=== PATIENT | female | born 1995 | race Caucasian/White ===

== ENCOUNTER 2018-03-22 21:28 | Emergency (ER) | payer OTHER ==
[~2018-03-22 21:28] MED LIST: HYDR-385 PO; NORG-1 PO; SERT-1 PO
[2018-03-22 21:46] VITALS: BP 138/85
--- NOTE | 2018-03-22 21:47 | ER Report ---
History and Physical Time Seen By MD: 21:45 HPI/ROS CHIEF COMPLAINT: Right small finger cut with glass HISTORY OF PRESENT ILLNESS: 22-year-old female presents ambulatory to the ER with a small laceration on her 5th finger on the palmar surface from a broken glass. Just prior to arrival. Patient states her tetanus shot is up-to-date from a few months ago. He notes no foreign body. Bleeding is controlled with pressure. Allergies: Coded Allergies: No Known Drug Allergies (Unverified , 03/22/18) Home Meds Reported Medications Norgestrel-Ethinyl Estradiol (OGESTREL) 1 Each Tablet, 1 EACH PO QDAY 03/09/16 Sertraline Hcl (ZOLOFT) 50 Mg Tablet, 1 TAB PO QDAY, TAB 03/09/16 Discontinued Scripts Hydrocodone Bit/Acetaminophen (HYDROCODON-ACETAMINOPHEN 5-325) 1 Each Tablet, 1 EACH PO Q6H PRN for PAIN, #10 TAB 0 Refills Prov:DUANE RIBEIRO APRN HEALTH THERAPIST-C 03/09/16 Reviewed Nurses Notes: Yes Old Medical Records Reviewed: Yes Constitutional Vital Sign - Last 24 Hours 03/22/18 21:46 Temp 98.4 Pulse 85 Resp 16 B/P (MAP) 138/85 Pulse Ox 95 O2 Delivery Room Air Physical Exam General appearance: Alert no distress. Respiratory: Chest is non tender, lungs are clear to auscultation. Cardiac: Regular rate and rhythm Extremity: Examination of the right hand reveals a superficial laceration on the pad of the left small finger, approximately 1.0 cm in length. DIFFERENTIAL DIAGNOSIS: After history and physical exam differential diagnosis was considered for finger laceration, foreign body, joint penetration, tendon laceration Medical Decision Making ED Course/Re-evaluation ED Course Patient was admitted to an examination room. H&P was done. The differential diagnoses was considered. On conical examination. Patient has a laceration of the pad of her right 5th finger. Her tetanus status is up-to-date. Patient's wound is repaired with Dermabond as noted below. Wound care is discussed. Procedure: Laceration repair. Verbal consent was obtained from the patient. The 1.0 cm laceration on the palmar aspect of the distal right 5th fingerthe wound was scrubbed, draped and explored to its base with a gloved finger. There were no deep structures involved. No foreign body was palpated or noted. The wound was repaired with Dermabond 3 layers. The wound repair was simple. The procedure was performed by myself. Decision to Disposition Date: Mar 22, 2018 Decision to Disposition Time: 21:52 Depart Departure Latest Vital Signs Vital Signs Date Time Temp Pulse Resp B/P (MAP) Pulse Ox O2 Delivery O2 Flow Rate FiO2 03/22/18 21:46 98.4 85 16 138/85 95 Room Air Impression: Primary Impression: Laceration of right little finger Condition: Improved Disposition: HOME OR SELF-CARE Patient Instructions: Skin Adhesive Care (ED) Problem Qualifiers Primary Impression: Laceration of right little finger Encounter type: initial encounter Damage to nail status: without damage Foreign body presence: without foreign body Qualified Codes: S61.216A - Laceration without foreign body of right little finger without damage to nail, initial encounter SHUKRI DENG DO Mar 22, 2018 21:47
[2018-03-22] MEDS ORDERED: OCTYL CYANOACRYLATE 1 APP APPL TP ONE (21:50)
== END 2018-03-22 22:04 | disposition home or self-care (01) ==
LOC: ER 21:58
DX: S61.216A Laceration without foreign body of right little finger without damage to nail, initial encounter (principal); W25.XXXA Contact with sharp glass, initial encounter
CPT/HCPCS: 99283

== ENCOUNTER → 2018-07-19 | Outpatient (CLI) | payer OTHER ==
[~2018-07-19] MED LIST changes: +LOOVRAL PO; +SERT-173 PO
== END ==
LOC: AMB 23:50
PROVIDERS: ATTEND Nurse Practitioner
DX: S61.512A Laceration without foreign body of left wrist, initial encounter (principal); X83.8XXA Intentional self-harm by other specified means, initial encounter
CPT/HCPCS: A0425; A0429

== ENCOUNTER 2018-07-20 00:14 | Emergency (ER) | payer OTHER ==
[~2018-07-20 00:14] MED LIST changes: -LOOVRAL PO; -SERT-173 PO
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
[2018-07-20 00:22] VITALS: BP 143/100
[2018-07-20] MEDS ORDERED: SERT-173 PO (00:31)
[2018-07-20 01:16] LABS: PLATELET COUNT, AUTOMATED 451 K/uL (150-450)
[2018-07-20] MEDS ORDERED: ONDANSETRON 4 MG ODT TABDP SL ONE (01:45)
[2018-07-20] MEDS ORDERED: LOOVRAL PO (19:11)
== END 2018-07-20 02:05 ==
LOC: ER 00:27
DX: S61.512A Laceration without foreign body of left wrist, initial encounter (principal); F10.920 Alcohol use, unspecified with intoxication, uncomplicated; R45.851 Suicidal ideations; F32.9 Major depressive disorder, single episode, unspecified
CPT/HCPCS: 12002; 80305; 80320; 80329; 81001; 81025; 83735; 84443; 85025; 99283; S0119; 82040; 82247; 82310; 82374; 82435; 82565; 82947; 84075; 84132; 84155; 84295; 84450; 84460; 84520

== ENCOUNTER 2018-07-20 01:51 | Inpatient (IN) | payer OTHER ==
[~2018-07-20] VITALS: Ht 165.1 cm; Wt 86.2 kg
[~2018-07-20 01:51] MED LIST changes: +SERT-173 PO
[2018-07-20] MEDS ORDERED: MAG HYD/AL HYD/SIMETH 30ML UDC PO PRN (02:00)
[2018-07-20] MEDS ORDERED: hydrOXYzine PAMOATE 25 MG CAP PO PRN (02:00)
[2018-07-20 03:07] VITALS: BP 129/83
[2018-07-20] MEDS: MULTIVITAMINS TAB PO SCH (08:00)
[2018-07-20 09:12] VITALS: BP 107/64
[2018-07-20] MEDS: ONDANSETRON 4 MG ODT TABDP SL PRN ×2 (10:31→17:24)
[2018-07-20] MEDS: SERTRALINE HCL 50 MG TAB PO SCH (11:31)
[2018-07-20] MEDS: ACETAMINOPHEN 325 MG TAB PO PRN ×2 (13:50→21:39)
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
--- NOTE | 2018-07-20 17:26 | NUR ---
pt continue to feels nausea. Zofran given. Pt states she will try to eat.
[2018-07-20] MEDS ORDERED: LOOVRAL PO (19:11)
--- NOTE | 2018-07-20 19:57 | BHS - Psychiatric Evaluation ---
ER - Title 25 MHE Evaluation Title 25 Evaluation Patient Detained By: Law Enforcement Referral Source: Professional: Law Enforcement Date Patient Detained: Jul 20, 2018 Time Patient Detained: 00:23 Date Longterm Expires: Jul 23, 2018 Time Longterm Expires: 00:23 Legal Status: Police Hold: No Legal Status: Residence: Student ( Student with high GPA) Assessment Data Provided By: Patient, Other Source HPI/ROS: From Dr. Justus Townsend, "23-year-old female brought in by EMS after self-inflicted left wrist laceration while intoxicated tonight inserted 23nd birthday. Patient doesn't describe any suicidal ideation, although her behavior is inappropriate. Patient was detained by police. She does have a history of depression, takes Zoloft 100 mg her doses recently, up from 50. Patient's tetanus status is up-to-date from a year ago. Patient admits to heavy alcohol ingestion tonight, 6 drinks. Her blood alcohol returned at 206." Wound required suture. Admit due to SI or Attempt: Yes Suicide Plan: No Plan Alcohol or Drugs Involved: Yes Is Patient Info Reliable: Yes Is Collateral Info Reliable: Yes Current Home Psych Meds: Zoloft Mental Status Exam General Appearance: Good Eye Contact Speech: Clear Mood: Euthymic Affect: Full and Appropriate Thought Process: Organized Thought Content: Suicidal Ideation (Reports not understanding why she cut herself.) Cognition: Alert & Oriented-Person, Alert & Oriented-Place, Alert & Oriented- Time Memory: Immediate Insight Judgment: Poor Sleep: Normal Hallucinations: Denies Delusions: Denies Current Risk & History Current Dangerous Risk Assessm: Current Suicide Attempt, Self-Injurious Behaviors Past Dangerous Risk Assessm: Suicide Ideation-last 6mo (Denies previous ideati on or suicidal behaviors) Prior Alcohol/Drug Abuse Patient scores a "medium" severity related to drinking alcohol behaviors. She acknowledges some binge drinking. Previous Suicide Attempt: No Previous Attempt (Denies previous attempts.) Previous Psychiatric Illness: Yes Previous Psychiatric Treatment: Yes Previous Treatment Description Treated for depression with an antidepressant medication. Risk Assessment & Disposition Evaluated Risk Assessment: Risk is rated as high because of patient's self harm, and lack of insight into her behavior. She describes it as an impulsive event, and does not "know why" she harmed herself. Support to help patient identify stressors and direct her behavior keeping herself safe. Impression: Primary Impression: Alcohol intoxication Additional Impressions: Depression with suicidal ideation Self-inflicted laceration of wrist Meets Mental Illness Req.: Yes Meets Dangerousness Req.: Yes Emergency Longterm to be: Upheld Decision Comment: From Dr. Kareen Esteves, "The patient is admitted to [facility] and is being maintained on suicide precautions. She will attend individual and group therapies. We will continue her Zoloft at 100 mg per day. We will add T3 and T4 to her labs. We have scheduled a family meeting for her mother and possibly also her father to attend tomorrow. We will help her arrange outpatient therapy for after her discharge." Date of Decision: Jul 20, 2018 Time of Decision: 19:57 Patient is Medically Stable at: Yes Disposition: [facility] Problem Qualifiers DEANNE MILAN LPC Jul 20, 2018 19:57
[2018-07-20 21:01] VITALS: BP 127/87
[2018-07-21 06:26] VITALS: BP 116/72
[2018-07-21] MEDS: MULTIVITAMINS TAB PO SCH (08:16)
[2018-07-21] MEDS: SERTRALINE HCL 50 MG TAB PO SCH (08:17)
[2018-07-21 10:28] VITALS: BP 121/81
--- NOTE | 2018-07-21 14:10 | BHS Progress Note ---
[facility] - Subjective Progress Notes Subjective Pt seen in treatment team meeting with her mother present. Pt says she is feeling better, is tolerating meds well, slept well, and denies any suicidal ideation. Taking zoloft 100 mg, and we do not feel she needs to increase her dose. Her mother was supportive. Talking about the slippery slope of alcohol abuse, there is family history of alcoholism, and pt showing some warning signs with three blackouts now and serious self harm with cutting her wrist during alcohol blackout. Pt verbalizing commitment to moderation if not abstaining from etoh. Discussed very mild abnormalities in thyroid functions(below); she will follow up with [facility]MD after discharge. Pt working on mundfulness, distress tolerance skills, and will do wellness and recovery plan tomorrow. Tentative discharge tomorrow if pt remains stable. Suicidal Ideation: None Homicidal Ideation: None [facility] - Objective Physical Exam Vital Signs Vital Signs 07/21/18 10:28 Temp 99.0 Pulse 89 Resp 16 B/P (MAP) 121/81 (94) Pulse Ox 92 O2 Delivery Room Air Muscle Strength and Tone: WNL Gait and Station: Steady [facility] Medications Reviewed: Side Effects, Benefits of Medication, Risks Allergies Reviewed: Yes Mental Status Exam General Appearance: Casual, Well Groomed, Good Eye Contact, Cooperative, Polite, Good Interaction Speech: Clear, Spontaneous, Normal Rate, Normal Rhythm, Normal Volume, Normal Tone Mood: Euthymic Affect: Full and Appropriate Thought Process: Organized Thought Content: Suicidal Ideation (Reports not understanding why she cut herself.); No Homicidal Ideation, No Delusions, No Auditory Halllucinations, No Visual Hallucinations, No Thought Broadcasting, No Ideas of Reference, No Obsessions, No Compulsions, No Other Cognition: Alert & Oriented-Person, Alert & Oriented-Place, Alert & Oriented- Time Memory: Immediate, Recent, Remote Intelligence: Average Insight Judgment: Fair Lab Item Value Date Time Free Thyroxine 1.23 ng/dl 07/20/1845 Free Triiodothyronine 4.8 pg/mL H 07/20/1845 Thyroid Stimulating Hormone (TSH) 8.60 uIU/ml H 07/20/[address] [facility] Assessment and Plan Nnry-sn-Otww Encounter Date: Jul 21, 2018 Ioco-tu-Lqot Encounter Time: 09:[address] [facility] Plan: Admit to Unit, Necessary Precautions, Individual/Group Therapy, Admin/Titrate Meds, Educate Patient Tobacco Medications: Not Appropriate Condition Multpiple Antipsychotics Used: No Problems: (1) Self-inflicted laceration of wrist Status: Acute (2) Alcohol use disorder, moderate, dependence (3) Persistent depressive disorder DULCE HITCHCOCK MD Jul 21, 2018 14:10
[2018-07-21] MEDS: ACETAMINOPHEN 325 MG TAB PO PRN ×2 (14:27→21:37)
[2018-07-21 20:54] VITALS: BP 135/86
[2018-07-22 06:13] VITALS: BP 105/59
[2018-07-22] MEDS: SERTRALINE HCL 50 MG TAB PO SCH (08:16)
[2018-07-22] MEDS: MULTIVITAMINS TAB PO SCH (08:16)
--- NOTE | 2018-07-22 14:01 | BHS Discharge Summary ---
[facility] Discharge Summary Nrar-yf-Payg Encounter Date: Jul 22, 2018 Jcwk-by-Swyh Encounter Time: 10:30 Reason-Hosp/Final Diag (DSM-V): (1) Self-inflicted laceration of wrist Status: Acute Hospital Course & Plan: HISTORY OF PRESENT ILLNESS This is the first ever psychiatric admission for this 23-year-old female who is here on an emergency half-way which was filed by the police after a suicide attempt by cutting her wrist. The patient says that her birthday was yesterday, and she went out with friends to a local bar where they were drinking. She apparently drank so much that she had a blackout. She says she remembers that she was very upset about something, but she cannot remember what upset her. The patient suddenly impulsively grabbed a kitchen knife and cut her left wrist significantly. Her friends called the police and the ambulance, and she was transported to the Emergency Room where she received about 12 sutures. The cut did extend through the dermis, but did not injure any tendons. The patient denies any recent thoughts of suicide. She says she still does not understand why she did what she did. She does have a past history of depression and anxiety, but says that she has not had any suicidal ideation since she was in high school. She does admit that recently she has been more stressed out because she is a senior and has been traveling a lot to go to [employer] [facility] for graduate school applications and has been stressed about getting behind in her class work because of missing class. Her current GPA is 3.86, and she has not been experiencing any recent signs of depression. She has been socializing, going out with friends, attending classes successfully, eating well, and sleeping well. PAST PSYCHIATRIC HISTORY The patient was diagnosed with depression in her sophomore year of high school. At that time, she attended therapy and began taking Zoloft 100 mg. She says that by the time she was a senior in high school, she was doing much better and has not been in counseling since then, although she has been maintained on her Zoloft. She did have a history of superficial cutting in high school, but none in four or five years. HOSPITAL COURSE Pt was admitted to [facility] and maintained on suicide precautions. She was pleasant and cooperative and participated actively in her treatment attending all groups and [place] activities. She denied suicidal ideation throughout her hospital stay. We continued her zoloft unchanged at 100 mg q am. She participated in a team meeting with her mother present, who was very supportive. Pt processed guilt and shame regarding her self harm behavior while drinking. We discussed the warning signs that she is developing a problem with alcohol, and she was open to alcohol education and working towards abstaining or at least moderating her drinking significantly. Her labs showed minor abnormalities in thyroid function tests, and she was given a copy of these (see labs below). Her wrist wound was healing well without signs of infection. She will follow up at [facility] for therapy, at the [facility] for medication management and for work up of her mildly abnormal thyroid function tests on August 02. She will return to ER on July 29 for suture removal. (2) Alcohol use disorder, moderate, dependence (3) Persistent depressive disorder Physical Exam Latest Vital Signs Vital Signs 07/22/18 06:13 Temp 98.8 Pulse 73 Resp 15 B/P (MAP) 105/59 (74) Pulse Ox 93 O2 Delivery Room Air Mental Status Exam General Appearance: Casual, Well Groomed, Good Eye Contact, Cooperative, Polite, Good Interaction Speech: Clear, Spontaneous, Normal Rate, Normal Rhythm, Normal Volume, Normal Tone Mood: Euthymic Affect: Full and Appropriate Thought Process: Organized, Logical, Goal Directed Thought Content: No Suicidal Ideation, No Homicidal Ideation, No Delusions, No Auditory Halllucinations, No Visual Hallucinations, No Thought Broadcasting, No Ideas of Reference, No Obsessions, No Compulsions, No Other Sensorium: Clear Cognition: Alert & Oriented-Person, Alert & Oriented-Place, Alert & Oriented- Time, Dutiq-Zfopdwsz-Rzajrauvp Memory: Immediate, Recent, Remote Intelligence: Average Insight Judgment: Good Departure Item Value Date Time White Blood Count 8.7 k/uL 07/20/1845 Red Blood Count 5.32 M/uL 07/20/186 Hemoglobin 14.9 g/dL 07/20/1845 Hematocrit 43.9 % 07/20/1845 Mean Corpuscular Volume 82.5 fL 07/20/1845 Mean Corpuscular Hemoglobin 27.9 pg 07/20/1845 Mean Corpuscular Hemoglobin Concent 33.8 g/dL 07/20/1845 Red Cell Distribution Width 14.7 % H 07/20/18 0046 Platelet Count 451 K/uL H 07/20/18 0046 Mean Platelet Volume 6.9 fL L 07/20/18 0046 Sodium Level 143 mmol/L 07/20/18 0046 Potassium Level 4.0 mmol/L 07/20/18 0046 Chloride Level 103 mmol/L 07/20/18 0046 Carbon Dioxide Level 25 mmol/L 07/20/18 0046 Blood Urea Nitrogen 9 mg/dl 07/20/18 0046 Creatinine 0.80 mg/dl 07/20/18 0046 Glomerular Filtration Rate Calc > 60.0 07/20/18 0046 Random Glucose 111 mg/dl H 07/20/18 0046 Calcium Level 10.2 mg/dl 07/20/18 0046 Magnesium Level 1.9 mg/dl 07/20/18 0046 Total Bilirubin 0.2 mg/dl 07/20/18 0046 Aspartate Amino Transf (AST/SGOT) 32 U/L 07/20/18 0046 Alanine Aminotransferase (ALT/SGPT) 31 U/L 07/20/18 0046 Alkaline Phosphatase 75 U/L 07/20/18 0046 Total Protein 7.8 g/dl 07/20/18 0046 Albumin 4.8 g/dl 07/20/18 0046 Thyroid Stimulating Hormone (TSH) 8.60 uIU/ml H 07/20/18 0046 Free Thyroxine 1.23 ng/dl 07/20/18 0046 Free Triiodothyronine 4.8 pg/mL H 07/20/18 0046 Urine Color Colorless 07/20/189 Urine Clarity Clear 07/20/189 Urine pH 6.0 pH 07/20/18 0019 Urine Specific [place] 1.002 07/20/18 0019 Urine Protein Negative mg/dL 07/20/189 Urine Glucose (UA) Negative mg/dL 07/20/1818 Urine Ketones Negative mg/dL 07/20/1818 Urine Blood Negative 07/20/1818 Urine Nitrite Negative 07/20/1818 Urine Bilirubin Negative 07/20/1818 Urine Urobilinogen Negative mg/dL 07/20/1818 Urine Leukocyte Esterase Negative 07/20/189 Urine RBC <1 /HPF 07/20/1818 Urine WBC <1 /HPF 3/5/19 0019 Urine Squamous Epithelial Cells Few /LPF 07/20/18 0019 Urine Bacteria Few /HPF 07/20/18 0019 Urine Mucus None /HPF 07/20/18 0019 Urine HCG, Qualitative Negative 07/20/1818 Salicylates Level < 10 mg/L 07/20/1845 Salicylate Last Dose Date unk 07/20/18 004 Urine Opiates Screen Negative 07/20/1818 Acetaminophen Level < 10 ug/ml 07/20/18 004 Urine Barbiturates Screen Negative 07/20/1818 Ur Tricyclic Antidepressants Screen Negative 07/20/1818 Urine Phencyclidine Screen Negative 07/20/1818 Urine Amphetamines Screen Negative 07/20/1818 Urine Benzodiazepines Screen Negative 07/20/1818 Urine Cocaine Screen Negative 07/20/1818 Urine Cannabinoids Screen Negative 07/20/1818 Serum Alcohol 206 mg/dl 07/20/1845 Condition: Improved Discharge to: Home Discharge Instructions Home Meds Reported Medications Norgestrel-Ethinyl Estradiol (LOW-OGESTREL) 1 Each Tab, 1 TAB PO QDAY 07/20/18 Sertraline Hcl (ZOLOFT) 100 Mg Tablet, 1 TAB PO QDAY, TAB 07/20/18 Discontinued Reported Medications Norgestrel-Ethinyl Estradiol (OGESTREL) 1 Each Tablet, 1 EACH PO QDAY 03/09/16 Sertraline Hcl (ZOLOFT) 50 Mg Tablet, 1 TAB PO QDAY, TAB 03/09/16 Multpiple Antipsychotics Used: No Diet: Regular Activity: As Tolerated Special Instructions: Take medications as prescribed. Follow up with outpatient provider for medication management. Follow up with outpatient therapy. Follow up for thyroid. Abstain from alcohol and all illicit substances. Call Crisis Line should symptoms return. DULCE HITCHCOCK MD Jul 22, 2018 14:01
[2018-07-22 14:18] VITALS: BP 121/71
== END 2018-07-22 15:46 | disposition home or self-care (01) | DRG 897 ==
LOC: BHS 01:51
PROVIDERS: ADMIT Psychiatry & Neurology Psychiatry; ATTEND Psychiatry & Neurology Psychiatry
DX: F10.24 Alcohol dependence with alcohol-induced mood disorder (principal); S61.512A Laceration without foreign body of left wrist, initial encounter; F10.220 Alcohol dependence with intoxication, uncomplicated; E03.9 Hypothyroidism, unspecified; F34.1 Dysthymic disorder; Y90.7 Blood alcohol level of 200-239 mg/100 ml; Z81.8 Family history of other mental and behavioral disorders; Z81.1 Family history of alcohol abuse and dependence; X78.1XXA Intentional self-harm by knife, initial encounter; Y92.039 Unspecified place in apartment as the place of occurrence of the external cause; Y99.8 Other external cause status
CPT/HCPCS: 84439; 84481; Q0177; S0119

== ENCOUNTER 2018-07-29 17:17 | Emergency (ER) | payer OTHER ==
[~2018-07-29 17:17] MED LIST changes: +LOOVRAL PO
[2018-07-29 17:29] VITALS: BP 152/104
--- NOTE | 2018-07-29 17:30 | ER Report ---
History and Physical Time Seen By MD: 17:30 Hx. of Stated Complaint: Suture removal HPI/ROS CHIEF COMPLAINT: laceration suture removal HISTORY OF PRESENT ILLNESS: The patient returns to the ED for suture removal. There have been no problems and no symptoms of infection. The laceration was on the distal left forearm. Sutures have been in place for 9 days. Allergies: Coded Allergies: avocado (Verified Allergy, Unknown, 07/20/18) tree nut (Verified Allergy, Unknown, 07/20/18) Home Meds Reported Medications Norgestrel-Ethinyl Estradiol (LOW-OGESTREL) 1 Each Tab, 1 TAB PO QDAY 07/20/18 Sertraline Hcl (ZOLOFT) 100 Mg Tablet, 1 TAB PO QDAY, TAB 07/20/18 Past Medical/Surgical History Patient with history significant for migraines, vision problems, alcohol abuse, depression, suicidal thoughts, abuse/neglect. Past surgical history significant for tonsillectomy and wisdom teeth removal. Reviewed Nurses Notes: Yes Hx Smoking: No Smoking Status: Never Smoker Hx Alcohol Use: Yes Constitutional Vital Sign - Last 24 Hours 07/29/18 17:29 Temp 97.7 Pulse 99 Resp 20 B/P (MAP) 152/104 Pulse Ox 94 O2 Delivery Room Air Physical Exam General appearance: alert no distress CV: Regular rate and rhythm Resp: Auscultation clear throughout lung [place]. Skin: The laceration of the distal left forearm is well healing and appears to have no evidence of infection. MEDICAL DECISION MAKING: I removed the sutures myself. Following removal there was no dehiscence of the wound. Medical Decision Making ED Course/Re-evaluation ED Course Patient admitted to an exam room. History and physical obtained. Patient here for suture removal. Laceration appears to be healing well; it is well- approximated, no signs of infection present including no pus or drainage, pain at site, or erythema. Simple running sutures removed. 11 pieces removed, with the lateral end containing two strings. Steri-strips placed over laceration. P atient discharged home with self-care instructions. Patient states understanding with plan of care. Decision to Disposition Date: Jul 29, 2018 Decision to Disposition Time: 17:41 Depart Departure Latest Vital Signs Vital Signs Date Time Temp Pulse Resp B/P (MAP) Pulse Ox O2 Delivery O2 Flow Rate FiO2 07/29/18 17:29 97.7 99 20 152/104 94 Room Air Impression: Primary Impression: Visit for suture removal Condition: Improved Disposition: HOME OR SELF-CARE Patient Instructions: Stitches Removal (DC) Additional Instructions: Please keep steri-strips in place until they fall off. You may shower and bathe with them in place. If the middle steri-strips fall off in the next couple of days, you may place another strip over that same place. If the wound re-opens, please return to the ED. If you start to experience fever, pus from the laceration, red streaks up your arm, pain, or vomiting, return to the ED. RUPERTO STAPLETON Jul 29, 2018 17:30
== END 2018-07-29 17:51 | disposition home or self-care (01) ==
LOC: ER 17:49
DX: S51.812D Laceration without foreign body of left forearm, subsequent encounter (principal)
CPT/HCPCS: 99281